=== PATIENT | female | born 1990 | race Caucasian/White ===

== ENCOUNTER 2021-03-18 14:13 | Emergency (ER) | payer BC, OTHER ==
[2021-03-18] MEDS ORDERED: Ondansetron PF 4 MG/2 ML Vial ONE (15:14)
[2021-03-18 15:24] LABS: #Eosinphils 0.1 10x3/uL (0.0-0.5); #Monocytes 0.7 10x3/uL (0.0-1.1); #Neutrophils 7.6 10x3/uL (1.5-8.4); %Basophils 0.4 % (0.0-2.0); %Lymphocytes 20.5 % (18.0-47.0); %Monocytes 6.2 % (0.0-10.0); %Neutrophils 71.2 % (40.0-75.0); Hemoglobin 14.9 g/dL (12.0-15.5); Mean Corpuscular HGB CONC 35.2 g/dL (32.0-36.0); Mean Corpuscular Hemoglobin 29.7 pg (27.0-33.0); Mean Corpuscular Volume 84.4 fl (81.6-98.3); Mean Platelet Volume 11.4 fl (7.4-10.4); Platelet Count 211 10x3/uL (150-450); RBC Distribution Width 12.7 % (11.5-14.5); Red Blood Cell (RBC) Count 5.01 10x6/uL (3.90-5.03); White Blood Cell (WBC) Count 10.7 10x3/uL (3.5-10.5)
[2021-03-18 15:35] LABS: ALT (SGPT) 15 U/L (8-55); AST (SGOT) 19 U/L (5-34); Albumin 4.5 g/dL (3.5-5.0); Alkaline Phosphatase 62 U/L (40-110); Anion Gap 14 mmol/L (10-20); BUN (Urea Nitrogen) 7 mg/dL (7.0-18.7); Bilirubin, Total 0.6 mg/dL (0.2-1.2); Calc. Creatinine Clearance 0 mL/min (70-130); Calcium 9.6 mg/dL (7.8-10.44); Carbon Dioxide 22 mmol/L (22-29); Chloride 104 mmol/L (98-107); Globulin 3.2 g/dL (2.4-3.5); Glucose 83 mg/dL (70-105); Lipase 19 U/L (8-78); Potassium 3.6 mmol/L (3.5-5.1); Protein, Total 7.7 g/dL (6.0-8.3); Sodium 136 mmol/L (136-145)
[2021-03-18 16:12] LABS: SARS-CoV-2 NAA Rapid Test Not Detected (NotDetected)
== END 2021-03-18 16:31 | disposition home or self-care (01) ==
LOC: CSHERS 14:13
DX: O99.511 Diseases of the respiratory system complicating pregnancy, first trimester (principal); J00 Acute nasopharyngitis [common cold]; Z3A.13 13 weeks gestation of pregnancy; O21.9 Vomiting of pregnancy, unspecified; Z20.822 Contact with and (suspected) exposure to COVID-19; O99.351 Diseases of the nervous system complicating pregnancy, first trimester; G40.909 Epilepsy, unspecified, not intractable, without status epilepticus; J45.909 Unspecified asthma, uncomplicated
CPT/HCPCS: 0240U; 71045; 80053; 82010; 83690; 85025; 93005; 96374; J2405

== ENCOUNTER 2021-09-23 05:25 | Inpatient (IN) | payer OTHER ==
[2021-09-22 13:44] LABS: Hemoglobin 11.6 g/dL (12.0-15.5); Mean Corpuscular HGB CONC 32.3 g/dL (32.0-36.0); Mean Corpuscular Hemoglobin 26.2 pg (27.0-33.0); Mean Corpuscular Volume 81.2 fl (81.6-98.3); Mean Platelet Volume 13.4 fl (7.4-10.4); Platelet Count 171 10x3/uL (150-450); RBC Distribution Width 13.7 % (11.5-14.5); Red Blood Cell (RBC) Count 4.42 10x6/uL (3.90-5.03); White Blood Cell (WBC) Count 11.7 10x3/uL (3.5-10.5)
[2021-09-22 14:46] LABS: HIV (1/2) Antibody/Antigen Non-Reactive (NonReactive); HIV 1/2 INDEX 0.09 S/CO (<1.00)
[2021-09-22 14:51] LABS: Syphilis Antibody Nonreactive (Nonreactive); Syphilis Antibody Index 0.02 S/CO (<1.00 Non-Reactive)
[2021-09-22 14:53] LABS: HBSAg Index 0.15 S/CO (0-0.99); Hep B Surf Ag Non-Reactive S/CO (NonReactive); SARS-CoV-2 NAA Rapid Test Not Detected (NotDetected)
[2021-09-23 05:14] VITALS: BMI 30.1
[~2021-09-23 05:25] MED LIST: Bicitra 30 ML UDCUP PO PRN; Famotidine/PF 20 mg/2ml Vial SLOW IVP PRN; Lactated Ringer's 1,000 ML IV SCH; Ondansetron PF 4 MG/2 ML Vial IVP PRN; Promethazine HCl 25 MG/ML VIAL IM PRN; ceFAZolin 2 GM/Dextrose 50 ML 2 GM in Premix Bag 1 BAG IVPB SCH; hydrALAZINE 20 MG/ML VIAL SLOW IVP PRN
[2021-09-23] MEDS ORDERED: Gentamicin Sulfate 120 MG in Premix Bag 1 BAG IVPB SCH (06:45)
[2021-09-23] MEDS ORDERED: Clindamycin/D5W 900 MG in Premix Bag 1 BAG IVPB SCH (06:45)
[2021-09-23] MEDS ORDERED: Dexamethasone 4 mg/ml Vial ONE (07:12)
[2021-09-23] MEDS ORDERED: Ondansetron PF 4 MG/2 ML Vial ONE (07:12)
[2021-09-23] MEDS ORDERED: Phenylephrine 40 MG/NS 250 ML 250 ML ONE (07:13)
[2021-09-23] MEDS ORDERED: Oxytocin 10 UNITS/ML VIAL ONE (07:13)
[2021-09-23] MEDS ORDERED: Morphine PF 10 MG/10 ML VIAL ONE (07:22)
[2021-09-23] MEDS ORDERED: diphenhydrAMINE 50 MG/ML VIAL ONE (08:06)
[2021-09-23] MEDS ORDERED: Ketorolac Tromethamine 30 MG/ML VIAL ONE (08:50)
[2021-09-23] MEDS ORDERED: Ondansetron HCl/PF 4 MG/2 ML Vial IVP PRN (09:13)
[2021-09-23] MEDS ORDERED: Promethazine HCl 25 MG SUPP PR PRN (09:13)
[2021-09-23] MEDS ORDERED: Ondansetron PF 4 MG/2 ML Vial IVP PRN ×2 (09:13→11:12)
[2021-09-23] MEDS ORDERED: diphenhydrAMINE 50 MG/ML VIAL IVP PRN (09:13)
[2021-09-23] MEDS ORDERED: Meperidine HCl/PF 25 MG/ML VIAL SLOW IVP PRN (09:13)
[2021-09-23] MEDS ORDERED: Moisturizing Cream (Eucerin) 113 GM JAR TOP PRN (09:13)
[2021-09-23] MEDS ORDERED: Naloxone HCl 0.4 mg/ml Vial IV PRN (09:13)
[2021-09-23] MEDS ORDERED: Promethazine HCl 25 MG/ML VIAL IM PRN (09:13)
[2021-09-23] MEDS ORDERED: Naloxone HCl 0.4 mg/ml Vial IVP PRN ×2 (09:13)
[2021-09-23] MEDS ORDERED: Fentanyl 100 MCG/2 ML VIAL SLOW IVP PRN (09:13)
[2021-09-23] MEDS ORDERED: Ketorolac Tromethamine 30 MG/ML VIAL IVP SCH (09:15)
[2021-09-23] MEDS ORDERED: Communication Order-Pharmacy FS SCH (09:15)
[2021-09-23] MEDS ORDERED: Meperidine HCl/PF 25 MG/ML VIAL ONE (11:11)
[2021-09-23] MEDS ORDERED: hydrALAZINE 20 MG/ML VIAL SLOW IVP PRN (11:12)
[2021-09-23] MEDS ORDERED: diphenhydrAMINE 25 MG CAP PO PRN (11:12)
[2021-09-23] MEDS ORDERED: Boostrix 0.5 ML (Tdap) VIAL IM ONE (11:12)
[2021-09-23] MEDS ORDERED: NS w/ Oxytocin 30 units 500 ML IV SCH (11:12)
[2021-09-23] MEDS ORDERED: Methylergonovine 0.2 MG/ML VIAL IM PRN (11:12)
[2021-09-23] MEDS ORDERED: Lanolin Ointment 7 GM TUBE TOP PRN (11:12)
[2021-09-23] MEDS ORDERED: Misoprostol 200 MCG TAB PR PRN (11:12)
[2021-09-23] MEDS ORDERED: Prenatal Vitamin 1 TAB PO SCH (12:00)
[2021-09-23] MEDS: Ketorolac Tromethamine 30 MG/ML VIAL IVP PRN ×2 (14:44→20:51)
[2021-09-23] MEDS: Ferrous Sulfate 325 MG TAB PO SCH ×2 (18:40→22:14)
[2021-09-23] MEDS ORDERED: LAMOTRIGINE 200 MG PO SCH (21:00)
[2021-09-24] MEDS: HYDROcodone/Acetaminophen 5/325 mg Tablet PO PRN ×5 (00:50→21:11)
[2021-09-24] MEDS: Ketorolac Tromethamine 30 MG/ML VIAL IVP PRN (04:23)
[2021-09-24 06:05] LABS: Hemoglobin 10.1 g/dL (12.0-15.5); Mean Corpuscular HGB CONC 32.4 g/dL (32.0-36.0); Mean Corpuscular Hemoglobin 26.5 pg (27.0-33.0); Mean Corpuscular Volume 81.9 fl (81.6-98.3); Mean Platelet Volume 13.4 fl (7.4-10.4); RBC Distribution Width 13.8 % (11.5-14.5); Red Blood Cell (RBC) Count 3.81 10x6/uL (3.90-5.03); White Blood Cell (WBC) Count 15.2 10x3/uL (3.5-10.5)
[2021-09-24 06:06] LABS: Platelet Count 159 10x3/uL (150-450)
[2021-09-24] MEDS: Ferrous Sulfate 325 MG TAB PO SCH ×2 (07:41→07:42)
[2021-09-24] MEDS: Prenatal Vitamin 1 TAB PO SCH (09:07)
[2021-09-24] MEDS: Ibuprofen 800 MG TAB PO SCH ×2 (14:30→21:10)
[2021-09-24] MEDS: Simethicone Chewable 80 MG TAB PO PRN (14:32)
[2021-09-25] MEDS: HYDROcodone/Acetaminophen 5/325 mg Tablet PO PRN ×5 (02:20→22:22)
[2021-09-25] MEDS: Ferrous Sulfate 325 MG TAB PO SCH ×2 (03:40→08:21)
[2021-09-25] MEDS: Ibuprofen 800 MG TAB PO SCH ×3 (05:57→20:57)
[2021-09-25] MEDS: Prenatal Vitamin 1 TAB PO SCH (08:29)
[2021-09-25] MEDS: Docusate 100 MG CAP PO SCH ×2 (09:05→20:57)
[2021-09-25] MEDS ORDERED: ZONISAMIDE PO SCH (21:00)
[2021-09-26] MEDS: Ferrous Sulfate 325 MG TAB PO SCH ×3 (01:24→21:01)
[2021-09-26] MEDS: Simethicone Chewable 80 MG TAB PO PRN (01:43)
[2021-09-26] MEDS: Ibuprofen 800 MG TAB PO SCH ×3 (06:12→22:01)
[2021-09-26] MEDS ORDERED: Bisacodyl 10 MG SUPP PR PRN (07:47)
[2021-09-26] MEDS ORDERED: Acetaminophen 325 MG TAB PO PRN ×2 (07:47→10:40)
[2021-09-26] MEDS: Docusate 100 MG CAP PO SCH ×2 (10:20→22:01)
[2021-09-26] MEDS: Prenatal Vitamin 1 TAB PO SCH (10:21)
[2021-09-26] MEDS: HYDROcodone/Acetaminophen 5/325 mg Tablet PO PRN ×2 (17:22→22:44)
[2021-09-26 22:06] VITALS: TEMP 97.9
[2021-09-27] MEDS: Ibuprofen 800 MG TAB PO SCH (05:52)
[2021-09-27] MEDS: Ferrous Sulfate 325 MG TAB PO SCH (08:11)
[2021-09-27] MEDS: Prenatal Vitamin 1 TAB PO SCH (08:12)
[2021-09-27] MEDS: Simethicone Chewable 80 MG TAB PO PRN (08:12)
[2021-09-27] MEDS: Docusate 100 MG CAP PO SCH (08:12)
[2021-09-27] MEDS: HYDROcodone/Acetaminophen 5/325 mg Tablet PO PRN (08:12)
[2021-09-27 09:03] VITALS: BP 104/55
== END 2021-09-27 14:02 | disposition home or self-care (01) | DRG 788 ==
LOC: CSHLD 05:25 → CSHPP 11:22
PROVIDERS: ADMIT Obstetrics & Gynecology; ATTEND Obstetrics & Gynecology
PROC: 10D00Z1 Extraction of Products of Conception, Low, Open Approach (ICD-10-PCS; principal; 2021-09-23)
PROC: 3E0334Z Introduction of Serum, Toxoid and Vaccine into Peripheral Vein, Percutaneous Approach (ICD-10-PCS; 2021-09-23)
DX: O34.211 Maternal care for low transverse scar from previous cesarean delivery (principal); O26.893 Other specified pregnancy related conditions, third trimester; Z67.11 Type A blood, Rh negative; Z20.822 Contact with and (suspected) exposure to COVID-19; Z37.0 Single live birth; Z3A.39 39 weeks gestation of pregnancy; K66.0 Peritoneal adhesions (postprocedural) (postinfection); O99.62 Diseases of the digestive system complicating childbirth; O32.8XX0 Maternal care for other malpresentation of fetus, not applicable or unspecified
CPT/HCPCS: 36415; 51702; 85027; 85461; 86780; 86850; 86900; 86901; 87340; 87389; 90384; 96372; J1100; J1200; J1885; J2175; J2274; J2405; J2590; S0028; U0002

== ENCOUNTER 2023-03-09 14:32 | Emergency (ER) | payer OTHER ==
[2023-03-09] MEDS ORDERED: Ketorolac Tromethamine 30 MG/ML VIAL ONE (15:04)
[2023-03-09 15:21] LABS: #Basophils 0.1 10x3/uL (0.0-0.2); #Eosinphils 0.1 10x3/uL (0.0-0.5); #Monocytes 0.8 10x3/uL (0.0-1.1); #Neutrophils 6.7 10x3/uL (1.5-8.4); %Basophils 0.5 % (0.0-2.0); %Eosinophils 0.5 % (0.0-6.0); %Lymphocytes 16.2 % (18.0-47.0); %Monocytes 9.1 % (0.0-10.0); %Neutrophils 73.4 % (40.0-75.0); Hematocrit 43.2 % (34.9-44.5); Hemoglobin 14.8 g/dL (12.0-15.5); Mean Corpuscular HGB CONC 34.3 g/dL (32.0-36.0); Mean Corpuscular Hemoglobin 29.6 pg (27.0-33.0); Mean Corpuscular Volume 86.4 fl (81.6-98.3); Mean Platelet Volume 11.8 fl (7.4-10.4); Platelet Count 178 10x3/uL (150-450); RBC Distribution Width 12.9 % (11.5-14.5); White Blood Cell (WBC) Count 9.2 10x3/uL (3.5-10.5)
[2023-03-09 15:35] LABS: ALT (SGPT) 12 U/L (8-55); AST (SGOT) 16 U/L (5-34); Albumin 4.7 g/dL (3.5-5.0); Alkaline Phosphatase 77 U/L (40-110); Anion Gap 14 mmol/L (10-20); BUN (Urea Nitrogen) 6 mg/dL (7.0-18.7); Bilirubin, Total 0.5 mg/dL (0.2-1.2); Calc. Creatinine Clearance 0 mL/min (70-130); Calcium 9.3 mg/dL (7.8-10.44); Carbon Dioxide 18 mmol/L (22-29); Chloride 108 mmol/L (98-107); Estimated GFR 99; Globulin 2.4 g/dL (2.4-3.5); Glucose 106 mg/dL (70-105); Potassium 3.4 mmol/L (3.5-5.1); Protein, Total 7.1 g/dL (6.0-8.3); Sodium 137 mmol/L (136-145)
[2023-03-09 15:41] LABS: Bilirubin Neg (Negative); Blood, Urine Negative (Negative); Clarity Clear (Clear); Glucose, Urine (Dipstick) Normal (Negative); Ketone, Urine Negative (Negative); Leukocyte Negative (Negative); Nitrite Negative (Negative); Protein, Urine (Dipstick) Negative (Neg-Trace); Specific Gravity, Urine 1.005 (1.005-1.030); Urobilinogen Normal mg/dL (Less than 2)
[2023-03-09 15:43] LABS: Pregnancy Test - Urine (BHCG) Negative (Negative); Pregu Control Background? CLEAR/WHITE (CLR/WHITE); Pregu Control Bar Appear? YES (CONTROL BAR); Specific Gravity 1.005 (1.002-1.036)
[2023-03-09 15:59] LABS: CAUTI Indications for Culture Pelvic or flank pain; RBC/HPF None Seen HPF (0-3); WBC/HPF 0-3 HPF (0-3)
[2023-03-09 16:00] LABS: Bacteria/HPF 1+ HPF (None Seen); Squamous Epithelial 0-3 HPF (0-3)
[2023-03-09 16:01] LABS: Urine Culture Reflex No No
== END 2023-03-09 16:05 | disposition home or self-care (01) ==
LOC: CSHERS 14:32
DX: N83.202 Unspecified ovarian cyst, left side (principal); F17.200 Nicotine dependence, unspecified, uncomplicated
CPT/HCPCS: 36415; 76856; 80053; 81001; 81025; 85025; 96372; J1885